=== PATIENT | female | born 1960 | race Caucasian/White ===

== ENCOUNTER → 2016-10-05 | Outpatient (CLI) | payer MEDICARE, OTHER ==
--- NOTE | 2016-10-08 14:15 | MAM ---
EXAM DESCRIPTION: 3D Screening BILATERAL CLINICAL HISTORY: 56 years, Female, Screening mammogram COMPARISON: January 18, 2015 TECHNIQUE: CC and MLO digital mammograms with 3-D tomosynthesis. No CAD utilized. FINDINGS: There are scattered fibroglandular densities. There is no dominant mass nor any suspicious microcalcifications. Benign microcalcifications are present. IMPRESSION: BIRAD CATEGORY: 2 BENIGN FOLLOW-UP: Routine mammography screening. Electronically signed by: El Sorenson MD 10/08/2016 2:14 PM CDT
== END ==
LOC: MAMMO 14:00
PROVIDERS: ATTEND General Practice
DX: Z12.31 Encounter for screening mammogram for malignant neoplasm of breast (principal)
CPT/HCPCS: 77063; G0202

== ENCOUNTER → 2018-03-21 | Outpatient (CLI) | payer MEDICARE, OTHER ==
--- NOTE | 2018-03-21 15:40 | US ---
EXAM DESCRIPTION: Abdomen,Complete: Ultrasound. CLINICAL HISTORY: PAIN COMPARISON: None Available. TECHNIQUE: Transabdominal scannin-dimensional and Doppler modes. FINDINGS: Gallbladder: Multiple echogenic gallstones within the gallbladder. Limited visualization of the posterior gallbladder due to posterior shadowing. Wall thickness 1 mm. No fluid surrounding the gallbladder. Nontender with transducer pressure. Common bile duct: 5.7 mm caliber at the pancreatic head. Liver: Increased echogenicity. Long axis right hepatic lobe 16 cm. Smooth capsule with no intrahepatic biliary dilatation. No ascites. Normal caliber of the portal vein with hepatopedal flow. Pancreas: Included organ normal echogenicity. Pancreatic duct not seen.. Abdominal aorta: Normal caliber from the proximal segment to the distal bifurcation. IVC: visualized; normal caliber. Spleen normal echogenicity; long axis measurement is slightly less than 11 cm. Right kidney: 10.3 cm long axis. Normal cortical thickness and echogenicity. No hydronephrosis or perinephric fluid. Left kidney: 11.1 cm long axis with normal cortical thickness and echogenicity. Collecting system may be partially duplicated. No hydronephrosis or perinephric fluid. IMPRESSION: 1. Diffuse cholelithiasis of the gallbladder with no wall thickening or surrounding fluid. Nontender with transducer pressure. Caliber of the common bile duct upper normal limit. 2. Diffusely fatty liver with normal vascularity and ducts. Smooth capsule with no ascites. Pancreas is unremarkable. 3. Spleen and right kidney are unremarkable. Left kidney with partially duplicated collecting system otherwise negative. Abdominal aorta and IVC normal caliber. Electronically signed by: Renzo Landin MD 03/21/2018 3:39 PM [facility]
== END ==
LOC: US 10:02
PROVIDERS: ATTEND General Practice
DX: R10.11 Right upper quadrant pain (principal); K80.20 Calculus of gallbladder without cholecystitis without obstruction; K76.0 Fatty (change of) liver, not elsewhere classified

== ENCOUNTER → 2018-07-03 | Outpatient (CLI) | payer MEDICARE, OTHER ==
--- NOTE | 2018-07-04 09:12 | MRI ---
MRI left tib-fib without contrast INDICATION: Mass upper calf area x3 months TECHNIQUE: Noncontrast MR imaging left tib-fib standard protocol FINDINGS: There is a lipomatous mass superficially along the medial head gastrocnemius measuring in cross-section 3.5 x 1.2 cm and approximately 7.5 cm craniocaudal. This appears to be extra muscular with no soft tissue nodule noted. Minimal intralesional vascularity and septation. Mild intramuscular edema lateral head gastrocnemius possibly denervation or disuse related nonspecific. IMPRESSION: Nonaggressive appearing lipoma superficial aspect of the left calf posterior adjacent to the medial head gastrocnemius Intramuscular edema lateral head gastrocnemius suggesting denervation or disuse Electronically signed by: Lb Smith MD 07/04/2018 9:10 AM CDT
== END ==
LOC: MRI 11:00
PROVIDERS: ATTEND General Practice
DX: D17.24 Benign lipomatous neoplasm of skin and subcutaneous tissue of left leg (principal)

== ENCOUNTER 2018-12-23 17:34 | Emergency (ER) | payer MEDICARE, OTHER ==
[2018-12-23] MEDS ORDERED: methylPREDNISolone SODIUM SUC 125 MG/2 ML VIAL IM ONE (17:45)
[2018-12-23] MEDS ORDERED: diphenhydrAMINE HCL 50 MG/ML VIAL IM ONE (17:46)
--- NOTE | 2018-12-23 17:52 | ED.PDOC ---
History of Present Illness - General Chief Complaint: Allergic Reaction Stated Complaint: itching and hives after taking antibiotics Time Seen by Provider: 12/23/18 17:39 Source: patient - History of Present Illness Initial Comments: 58 y/o F presents to the emergency department complaining of itching onset 1 day ago. She was started on Bactrim and pyridium on 12/21/18 for a urinary tract infection and yesterday after taking it noticed onset of itching which has progressively worsened throughout the day today. She denies any shortness of breath or wheezing. She denies a history of any similar reaction to this medication in the past. She is allergic to penicillin, but has no other medication allergies. She has taken 3 Benadryl at approximately 1 PM but reports no significant improvement in the itching. She also noticed a rash to her upper shoulders this evening. She denies any fever, chills, vomiting or diarrhea. Symptoms are currently moderate in severity and nothing she does seems to make them significantly better or worse. Allergies/Adverse Reactions: Allergies Penicillins Allergy (Verified 12/23/18 17:42) Home Medications: Ambulatory Orders Duloxetine HCl 60 mg PO 12/23/18 Levothyroxine Sodium 50 mcg PO 12/23/18 Nitrofurantoin Monohydrate Mac [Macrobid] 100 mg PO BID #14 capsule 12/23/18 Phenazopyridine HCl [Pyridium] 200 mg PO 12/23/18 Prednisone 50 mg PO DAILY #5 tab 12/23/18 Sulfamethoxazole-Trimethoprim [Bactrim 400-80 mg] 12/23/18 Review of Systems - Review of Systems Constitutional: Denies: chills, fever EENTM: Denies: double vision, throat swelling, mouth swelling Respiratory: Denies: short of breath, wheezing Cardiology: Denies: chest pain, palpitations Gastrointestinal/Abdominal: Denies: abdominal pain, diarrhea, nausea, vomiting Genitourinary: States: dysuria, frequency Musculoskeletal: Denies: joint swelling, muscle stiffness Skin: States: rash. Denies: lesions Neurological: Denies: headache, numbness, weakness Past Medical History (General) - Patient Medical History Hx Seizures: No Hx Stroke: No Hx Dementia: No Hx Asthma: Yes Hx of COPD: No Hx Cardiac Disorders: No Hx Congestive Heart Failure: No Hx Pacemaker: No Hx Hypertension: No Hx Thyroid Disease: No Hx Diabetes: No Hx Gastroesophageal Reflux: No Hx Renal Disease: No Hx Cancer: No Hx of HIV: No Hx Hepatitis C: No Hx MRSA: No - Vaccination History Hx Tetanus, Diphtheria Vaccination: Yes Hx Influenza Vaccination: No Hx Pneumococcal Vaccination: No Immunizations Up to Date: No - Social History Hx Tobacco Use: No Hx Chewing Tobacco Use: No Hx Alcohol Use: Yes Hx Substance Use: Yes - marijuana Hx Substance Use Treatment: No Hx Depression: Yes Feels Threatened In Home Enviroment: No Feels Threatened In a Relationship: No Hx Physical Abuse: No Hx Emotional Abuse: No Hx Suspected Abuse: No - Female History Patient is a Female of Child Bearing Age (10 -59 yrs old): No Patient : No Family Medical History - Family History Mother Family History: No Known Living Status: Hx Family Asthma: No Hx Family Congestive Heart Failure: No Hx Family Hypertension: No Hx Family Stroke: No Physical Exam - Physical Exam General Appearance: Alert, Well Developed, Well Nourished, Other - actively scratching Eye Exam: bilateral normal Ears, Nose, Throat: normal pharynx, other - No uvular, palate or tongue edema. Neck: supple, normal inspection Respiratory: lungs clear, normal breath sounds, no respiratory distress, no accessory muscle use, other - No stridor. Cardiovascular/Chest: regular rate, rhythm Neurologic: alert, other - moves all extremities without focal deficits. Skin Exam: warm/dry, rash - erythematous maculopapular rash to upper shoulders with excorreations Comments: Last Vital Signs Temp 98.9 F 12/23/18 18:00 Pulse 80 12/23/18 18:17 Resp 20 12/23/18 18:17 BP 160/91 12/23/18 18:17 Pulse Ox 98 12/23/18 18:17 Progress - Progress Progress: 12/23/18 18:50 The patient was seen and evaluated in the emergency department, her vital signs are stable and she has no signs of a more severe allergic reaction and is stable to be d/c home. She was treated with IM Solu-Medrol and Benadryl in the emergency department and will be discharged home with a prescription for prednisone and changing her antibiotic to Macrobid. She was instructed to stop the Bactrim and to take [id number] Benadryl 50 mg every 6 hours as needed for continued itching. She was advised to follow-up with her primary care physician and to return to the emergency department immediately for any shortness of breath, wheezing or any other concerning signs or symptoms. The patient and significant other at the bedside have voiced understanding and agreed with the treatment plan. Departure - Departure Clinical Impression: Allergic reaction Qualifiers: Encounter type: initial encounter Qualified Code(s): T78.40XA - Allergy, unspecified, initial encounter Time of Disposition: 17:52 Disposition: Discharge to Home or Self Care Condition: Good Departure Forms: ED Discharge - Pt. Copy, Patient Portal Self Enrollment Instructions: Allergy to Sulfa Drugs Referrals: Bunny Laughlin MD [Primary Care Provider] - 1-2 Weeks Prescriptions: Nitrofurantoin Monohydrate Mac [Macrobid] 100 mg PO BID #14 capsule Prednisone 50 mg PO DAILY #5 tab Home Medications: Ambulatory Orders Duloxetine HCl 60 mg PO 12/23/18 Levothyroxine Sodium 50 mcg PO 12/23/18 Nitrofurantoin Monohydrate Mac [Macrobid] 100 mg PO BID #14 capsule 12/23/18 Phenazopyridine HCl [Pyridium] 200 mg PO 12/23/18 Prednisone 50 mg PO DAILY #5 tab 12/23/18 Sulfamethoxazole-Trimethoprim [Bactrim 400-80 mg] 12/23/18 Additional Instructions: Stop Bactrim and start macrobid. Take prednisone as directed and OTC benadryl q6H as needed. Call PCP today to schedule f/u appt and return for worsening sx, SOB, wheezing or other concerns.
[2018-12-23 18:02] VITALS: BP 160/91; TEMP 98.9
[2018-12-23 18:18] VITALS: O2SAT 98
== END 2018-12-23 18:18 | disposition home or self-care (01) ==
LOC: ER 17:34
DX: T78.40XA Allergy, unspecified, initial encounter (principal); Z88.0 Allergy status to penicillin; J45.909 Unspecified asthma, uncomplicated; X58.XXXA Exposure to other specified factors, initial encounter; Y92.9 Unspecified place or not applicable
CPT/HCPCS: J1200; J2930